=== PATIENT | female | born 1965 | race Caucasian/White ===

== ENCOUNTER 2016-11-15 08:53 | Emergency (ER) | payer OTHER ==
[2016-11-15 11:18] LABS: Hematocrit 40 % (35-47); Hemoglobin 13.3 g/dl (12.0-16.0); Mean Corpuscular HGB Conc 33 g/dl (31-36); Mean Corpuscular Hemoglobin 27 pg (27-31); Mean Corpuscular Volume 81 fL (80-97); Mean Platelet Volume 9 um3 (7.4-10.4); Red Blood Count 4.99 10^6/ul (4.0-5.4); Red Cell Distribution Width 14 % (10.5-15)
[2016-11-15 11:34] LABS: Albumin 4.4 g/dL (3.2-5.2); BUN/Creatinine Ratio 24.4 (8-20); Calcium 9.9 mg/dL (8.6-10.3); EGFR African American 94.5 (>60); EGFR Non-African American 73.5 (>60); Globulin 3.7 g/dL (2-4); Total Bilirubin 0.3 mg/dL (0.2-1.0); Total Protein 8.1 g/dL (6.4-8.9)
[2016-11-15 11:41] LABS: Urine Bilirubin Negative (Negative); Urine Glucose Negative (Negative); Urine Nitrite Negative (Negative)
[2016-11-15] MEDS ORDERED: Metoclopramide IV* 5 MG/ML 2 ML VIAL IV SLOW PU ONE (12:39)
[2016-11-15] MEDS ORDERED: Ketorolac INJ* 30 MG/ML 1 ML VIAL IV PUSH ONE (12:39)
[2016-11-15 13:19] LABS: C Reactive Protein 13.92 mg/L (< 5.00)
[2016-11-15 13:27] LABS: Erythrocyte Sed Rate 56 mm/Hr (0-30)
--- NOTE | 2016-11-15 13:35 | RAD ---
HISTORY: Left orbital headache, history of optic neuritis and MS COMPARISONS: October 03, 2015 TECHNIQUE: Multiple contiguous axial CT scans were obtained of the head without intravenous contrast. FINDINGS: HEMORRHAGE/INFARCT: There is no hemorrhage or acute infarct. MASSES/SHIFT: There is no mass or shift. EXTRA-AXIAL SPACES: There are no extra-axial fluid collections. SULCI AND VENTRICLES: The sulci and ventricles are normal in size and position for the patient's stated age. CEREBRUM: There is mild multifocal hypoattenuation of the periventricular white matter corresponding to the white matter lesions noted on previous MRI BRAINSTEM: There are no focal parenchymal abnormalities. CEREBELLUM: There are no focal parenchymal abnormalities. VESSELS: The vessels are grossly normal. PARANASAL SINUSES: The paranasal sinuses are clear. ORBITS: The orbits are unremarkable. BONES AND SOFT TISSUE: No bone or soft tissue abnormalities are noted. OTHER: None IMPRESSION: WHITE MATTER LESIONS CONSISTENT WITH THE HISTORY OF MULTIPLE SCLEROSIS. NO ACUTE INTRACRANIAL PATHOLOGY.
--- NOTE | 2016-11-15 15:05 | RAD ---
HISTORY: Periorbital pain, evaluate for sinusitis COMPARISONS: Head CT dated November 15, 2016 VIEWS: 4, Nick, Gaytan, submental, lateral views of the skull to include the paranasal sinuses. FINDINGS: BONE DENSITY: Normal. BONES: There is no displaced fracture. JOINTS: There is no arthropathy. ALIGNMENT: There is no dislocation. SOFT TISSUES: Unremarkable. OTHER FINDINGS: The paranasal sinuses are clear. There is no appreciable erosion or periosteal reaction or air-fluid level. The mastoid air cells are well-aerated IMPRESSION: THE PARANASAL SINUSES ARE CLEAR. .
[2016-11-15] MEDS ORDERED: methylPREDNISolone SOD SUCC* 1,000 MG in NS 0.9% 1000 ML* 1,000 ML IVPB ONE (15:32)
[2016-11-15 18:26] VITALS: BP 126/55
--- NOTE | 2016-12-12 14:49 | ED ---
Yazan Davila SooYoung, scribed for Refugio Rowan MD on 11/15/16 at 1052 . Throat Pain/Nasal Congestion - HPI Summary HPI Summary: A 51 y/o F presents to ED with c/o migraine onset 3 days ago. Sx resolved after two days, but came back yesterday. Associated sx: mild pain/discomfort at L eye onset yesterday; vision changes including blurriness, cloudiness, and floaters. She believes the sx may be due to her MS. She notes having had an MRI last year with negligible changes from the previous MRI. Pt had a previous issue with her R eye that was a result of her MS. Similarly, she's previously had periorbital pain with migraine.Took OTC med with moderate relief. Denies fever, chills, n/v/ d, eye itchiness, cough, trauma, difficulty speaking, tingling/numbness in extremities. Pt states having allergies, and congestion as per baseline. - History of Current Complaint Chief Complaint: EDHeadache Time Seen by Provider: 11/15/16 10:34 Hx Obtained From: Patient Onset/Duration: Gradual Onset, Lasting Days - yesterday, Still Present Severity: Moderate - Allergies/Home Medications Allergies/Adverse Reactions: Allergies Allergy/AdvReac Type Severity Reaction Status Date / Time Penicillins Allergy Severe Hives Verified 11/15/16 09:20 Sulfa Antibiotics Allergy Severe PALPITATIONS, Verified 11/15/16 09:20 DIZZY, SWEATING PMH/Surg Hx/FS Hx/Imm Hx Previously Healthy: No Endocrine/Hematology History: Denies: Hx Diabetes Cardiovascular History: Denies: Hx Hypertension, Hx Pacemaker/ICD History: Denies: Hx Renal Disease Sensory History: Denies: Hx Hearing Aid Neurological History: Reports: Other Neuro Impairments/Disorders - MS Psychiatric History: Denies: Hx Panic Disorder - Surgical History Surgery Procedure, Year, and Place: CYST REMOVAL RIGHT/CENTER UPPER BACK Infectious Disease History: No Infectious Disease History: Denies: History Other Infectious Disease, Traveled Outside the [place] in Last 30 Days - Family History Known Family History: Positive: Cardiac Disease - father, Hypertension - parents , Diabetes - mother,, Other - neg: glaucoma - Social History Occupation: Unemployed Lives: With Family Alcohol Use: Rare Hx Substance Use: No Substance Use Type: Reports: None Hx Tobacco Use: No Smoking Status (MU): Never Smoked Tobacco Have You Smoked in the Last Year: No Review of Systems Negative: Fever, Chills Positive: Blurred Vision - and cloudiness and floaters, Other - eye pain. Negative: Erythema Negative: Sore Throat Negative: Chest Pain Negative: Shortness Of Breath, Cough Negative: Abdominal Pain, Vomiting, Diarrhea, Nausea Negative: dysuria, hematuria Negative: Myalgia, Edema Negative: Rash Neurological: Other - neg: dizziess Positive: Headache - migraine All Other Systems Reviewed And Are Negative: Yes Physical Exam - Summary Physical Exam Summary: Constitutional: Well-developed, Well-nourished, Alert. (-) Distressed Skin: Warm, Dry HENT: Normocephalic; Atraumatic; MAXILLARY AND FRONTAL SINUS TENDERNESS TO L ORBITAL Eyes: BILATERAL CONJUNCTIVA CONGESTION IN BOTH EYES. TONOMETRY TEST SHOWS INTRAOCULAR PRESSURE: 17,18,17. Neck: Musculoskeletal ROM normal neck. (-) JVD, (-) Stridor, (-) Tracheal deviation Cardio: Rhythm regular, rate normal, Heart sounds normal; Intact distal pulses; The pedal pulses are 2+ and symmetric. Radial pulses are 2+ and symmetric. (-) Murmur Pulmonary/Chest wall: Effort normal. (-) Respiratory distress, (-) Wheezes, (-) Rales Abd: Soft, (-) Tenderness, (-) Distension, (-) Guarding, (-) Rebound Musculoskeletal: (-) Edema Lymph: (-) Cervical adenopathy Neuro: Alert, Oriented x3 Psych: Mood and affect Normal Triage Information Reviewed: Yes Vital Signs On Initial Exam: Initial Vitals Temp Pulse Resp BP Pulse Ox 96.9 F 69 17 137/63 97 11/15/16 08:57 11/15/16 08:57 11/15/16 08:57 11/15/16 08:57 11/15/16 08:57 Vital Signs Reviewed: Yes - [place] Coma Scale Coma Scale Total: 15 Diagnostics - Vital Signs Vital Signs Temp Pulse Resp BP Pulse Ox 11/15/16 09:00 96.9 F 70 17 137/63 97 11/15/16 08:57 96.9 F 69 17 137/63 97 - Laboratory Result Diagrams: 11/15/16 11:07 11/15/16 11:07 Lab Statement: Any lab studies that have been ordered have been reviewed, and results considered in the medical decision making process. - Radiology Paranasal sinus Xray Interpretation: No Acute Changes - IMPRESSION: THE PARANASAL SINUSES ARE CLEAR. Radiology Interpretation Completed By: Radiologist - CT BRAIN CT Interpretation: No Acute Changes - IMPRESSION: WHITE MATTER LESIONS CONSISTENT WITH THE HISTORY OF MULTIPLE SCLEROSIS. NO ACUTE INTRACRANIAL PATHOLOGY. CT Interpretation Completed By: Radiologist Re-Evaluation - Re-Evaluation 1 Re-Evaluation Time: 17:30 Change: Improved Comment: Discussing dispo with pt and need to f/u with neuro for Solumedrol treatments. EENT Course/Dx - Course Course Of Treatment: Pt is a 51 y/o F with MS presents with migraine onset 3 days ago. Sx resolved after two days, but came back yesterday. Associated sx: mild pain/discomfort at L eye onset yesterday; vision changes including blurriness, cloudiness, and floaters. She notes having had an MRI last year with negligible changes from the previous MRI. Pt had a previous issue with her R eye that was a result of her MS. Similarly, she's previously had periorbital pain with migraine. Pt given Toradol, Reglan, Solumedrol in ED. CRP is 13.92. UA results are nml. Brain CT shows "WHITE MATTER LESIONS CONSISTENT WITH THE HISTORY OF MULTIPLE SCLEROSIS. NO ACUTE INTRACRANIAL PATHOLOGY." Paranasal sinus XR is nml. Pt given first Solumedrol treatment. She was told to f/u with neuro tomorrow and the next day for two additional treatments. - Diagnoses Provider Diagnoses: Multiple sclerosis, Migraine headache, Optic neuritis - Provider Notifications Discussed Care Of Patient With: Bill Mcmanus Time Discussed With Above Provider: 14:13 Instructed by Provider To: Other - Despite sinus congestion, recommends sinus XR with maxillary sinuses to r/u sinusitis. Recommends IV Solumedrol three days in a row, D/C and begin Solumedrol tomorrow in office. Discharge - Discharge Plan Condition: Stable Disposition: HOME Patient Education Materials: Methylprednisolone (By mouth), Migraine Headache ( ED), Optic Neuritis (ED) Referrals: Nichol Trent MD [Primary Care Provider] - Yeny Hernandez MD [Medical Doctor] - 1 Day () Bill Mcmanus MD [Medical Doctor] - 1 Day () Additional Instructions: You must follow up with Dr. Hernandez or Dr. Mcmanus, neuro, to receive a Solumedrol treatment on both Wednesday, November 16 and November 17. The documentation as recorded by the Yazan gaming SooYoung accurately reflects the service I personally performed and the decisions made by me, Refugio Rowan MD.
== END 2016-11-15 17:50 | disposition home or self-care (01) ==
LOC: ED 08:53
DX: G35 Multiple sclerosis (principal); G43.909 Migraine, unspecified, not intractable, without status migrainosus; H46.9 Unspecified optic neuritis; Z88.0 Allergy status to penicillin; Z88.2 Allergy status to sulfonamides
CPT/HCPCS: 36415; 70220; 70450; 80053; 81003; 83605; 85025; 85652; 86140; 96365; 96375; 99284; J1885; J2765; J2930

== ENCOUNTER 2017-04-30 18:19 | Emergency (ER) | payer OTHER ==
[2017-04-30] MEDS ORDERED: Ketorolac INJ* 60 MG/2 ML VIAL IM ONE (18:34)
[2017-04-30 18:39] VITALS: BP 135/78
--- NOTE | 2017-04-30 19:04 | RAD ---
INDICATION: Right ankle injury COMPARISON: None TECHNIQUE: AP, lateral, and oblique views were obtained. FINDINGS: There is no acute fracture or dislocation. There is a Achilles calcaneal spur There is soft tissue swelling. IMPRESSION: NO ACUTE BONY FINDINGS.
--- NOTE | 2017-04-30 19:06 | RAD ---
INDICATION: Right foot injury COMPARISON: None TECHNIQUE: AP, lateral, and oblique views were obtained. FINDINGS: There is no acute fracture or dislocation. There is a mild hallux valgus deformity. There is a small Achilles calcaneal spur There is soft tissue swelling. IMPRESSION: NO ACUTE BONY FINDINGS.
--- NOTE | 2017-04-30 21:38 | UC ---
Margarita Davila Thomas, scribed for Bernard Duncan MD on 04/30/17 at 1835 . Lower Extremity/Ankle HPI - HPI Summary HPI Summary: The patient is a 51 year old female presenting to Urgent Care complaining of right ankle pain that suddenly began earlier today when she injured it while walking. The patient was walking down her driveway when she accidentally inverted her ankle. The pain is severe and it is constant. The pain is aggravated by touch, movement, and weight bearing. It is alleviated by nothing. The patient has treated the symptoms with nothing prior to arrival. - History of Current Complaint Stated Complaint: RIGHT ANKLE INJURY Time Seen by Provider: 04/30/17 18:29 Hx Obtained From: Patient Hx Last Menstrual Period: 03/11/16 Onset/Duration: Sudden Onset, Lasting Hours - earlier today, Still Present Severity Initially: Severe Severity Currently: Severe Aggravating Factor(s): Standing, Ambulation, Other - Movement, touch Alleviating Factor(s): Nothing Able to Bear Weight: No - Allergies/Home Medications Allergies/Adverse Reactions: Allergies Allergy/AdvReac Type Severity Reaction Status Date / Time Penicillins Allergy Severe Hives Verified 04/30/17 18:28 Sulfa Antibiotics Allergy Severe PALPITATIONS, Verified 04/30/17 18:28 DIZZY, SWEATING PMH/Surg Hx/FS Hx/Imm Hx Previously Healthy: No - Multiple Sclerosis; NEGATIVE: DM - Surgical History Surgical History: Yes Surgery Procedure, Year, and Place: CYST REMOVAL RIGHT/CENTER UPPER BACK - Family History Known Family History: Positive: Cardiac Disease - father, Hypertension - parents , Diabetes - mother, - Social History Lives: With Family Alcohol Use: None Alcohol Amount: one glass of wine/month Substance Use Type: None Smoking Status (MU): Never Smoked Tobacco Have You Smoked in the Last Year: No - Immunization History Most Recent Influenza Vaccination: 2016 Most Recent Tetanus Shot: utd Review of Systems Constitutional: Other - NEGATIVE: fever Musculoskeletal: Other: - Right ankle pain Is Patient Immunocompromised?: No All Other Systems Reviewed And Are Negative: Yes Physical Exam Triage Information Reviewed: Yes Vital Signs: Initial Vital Signs Temp 97.5 F 04/30/17 18:33 Pulse 96 04/30/17 18:33 Resp 20 04/30/17 18:33 BP 135/78 04/30/17 18:33 Pulse Ox 100 04/30/17 18:33 Vital Signs Reviewed: Yes - Additional Comments VITAL SIGNS: Reviewed. GENERAL: Patient is a well-developed and nourished female who is lying comfortable in the wheelchair. Patient is not in any acute respiratory distress. HEAD AND FACE: Normocephalic EYES: PERRLA, EOMI x 2. EARS: Hearing grossly intact. MOUTH: Oropharynx within normal limits. NECK: Supple, trachea is midline, no adenopathy, no JVD, no carotid bruit. CHEST: Symmetric, no tenderness at palpation LUNGS: Clear to auscultation bilaterally. No wheezing or crackles. CVS: Regular rate and rhythm, S1 and S2 present, no murmurs or gallops appreciated. ABDOMEN: Soft, non-tender. Bowel sounds are normal. No abdominal abnormal pulsations. EXTREMITIES: The right ankle has positive swelling and decreased range of motion. There is no deformity. Otherwise, full ROM in all major joints, no edema , no cyanosis or clubbing. NEURO: Alert and oriented x 3. No acute neurological deficits. Speech is normal and follows commands. SKIN: Dry and warm Diagnostics - Radiology XR Ankle Xray Interpretation: No Acute Changes - NO ACUTE BONY FRACTURES. Dr. Duncan has reviewed this report. Radiology Interpretation Completed By: Radiologist XR Foot Xray Interpretation: No Acute Changes - NO ACUTE BONY FRACTURES. Dr. Duncan has reviewed this report. Radiology Interpretation Completed By: Radiologist Lower Extremity Course/Dx - Course Course Of Treatment: The patient is a 51 year old female presenting to Urgent Care complaining of right ankle pain that suddenly began earlier today when she injured it while walking. The patient was walking down her driveway when she accidentally inverted her ankle. The pain is severe and it is constant. The pain is aggravated by touch, movement, and weight bearing. It is alleviated by nothing. The patient has treated the symptoms with nothing prior to arrival. The patient was given Toradol at Urgent Care. Ankle radiograph shows NO ACUTE BONY FRACTURES. Foot radiograph shows NO ACUTE BONY FINDINGS. The patient was given a CAM boot. The patient is diagnosed with ankle sprain. The patient will be discharged home and instructed to follow up with orthopedics if her pain does not resolve. - Differential Dx/Diagnosis Differential Diagnosis/HQI/PQRI: Fracture (Closed), Gout, Sprain, Strain Provider Diagnoses: Ankle sprain Discharge - Discharge Plan Condition: Stable Disposition: HOME Patient Education Materials: Ankle Sprain (ED) Referrals: Tommy Ponce MD [Medical Doctor] - If Needed Additional Instructions: If your pain does not resolve in a few days, follow up with orthopedics. Return to urgent care for any new or worsening symptoms. The documentation as recorded by the Margarita gaming Thomas accurately reflects the service I personally performed and the decisions made by , Bernard Duncan MD.
== END 2017-04-30 19:37 | disposition home or self-care (01) ==
LOC: UCEAST 18:19
DX: S93.401A Sprain of unspecified ligament of right ankle, initial encounter (principal); Z88.2 Allergy status to sulfonamides; Z88.0 Allergy status to penicillin; X50.9XXA Other and unspecified overexertion or strenuous movements or postures, initial encounter; Y93.01 Activity, walking, marching and hiking; Y92.9 Unspecified place or not applicable
CPT/HCPCS: 99212; G0463; J1885